=== PATIENT | male | born 1955 | race Caucasian/White ===

== ENCOUNTER 2023-07-10 09:41 | Emergency (ER) | payer OTHER, MEDICARE, SELFPAY ==
[2023-07-10 09:51] VITALS: BP 177/88; PULSE 63; RESP 16; TEMP 36.7; O2SAT 98; BMI 22.6
[2023-07-10 10:48] LABS: Basophils % 0.8 %; Eosinophils # 0.1 10^3/uL (0.0-0.8); Eosinophils % 1.7 %; Hematocrit 45.1 % (37-53); Lymphocytes # 1.3 10^3/uL (0.8-4.8); Lymphocytes % 24.6 %; Mean Corpuscular HGB Conc 33.9 g/dL (30-55); Mean Corpuscular Hemoglobin 31.6 pg (27-33); Mean Corpuscular Volume 93.2 fl (82-101); Mean Platelet Volume 11.4 fL (7.4-10.4); Monocytes # 0.4 10^3/uL (0.2-0.9); Monocytes % 6.8 %; Neutrophils # 3.51 10^3/uL (1.8-7.7); Neutrophils % 65.9 %; Nucleated Red Blood Cells % 0 %; Platelet Count 141 10^3/cmm (157-399); Red Blood Count 4.84 10^6/uL (3.85-5.65); Red Cell Distribution Width 12.8 % (12.1-15.1); White Blood Count 5.32 10^3/uL (3.29-11.43)
[2023-07-10 11:07] LABS: Alanine Aminotransferase 17 U/L (0-41); Albumin Level 4.3 g/dL (3.5-5.2); Alkaline Phosphatase 68 U/L (40-130); Anion Gap 13.6 (5-19); Aspartate Amino Transferase 16 U/L (0-40); Blood Urea Nitrogen 12 mg/dL (8-23); Calcium 9.1 mg/dL (8.5-10.5); Carbon Dioxide 28 mmol/L (22-29); Chloride 101 mmol/L (98-107); Globulin 2.6 g/dL (1.3-4.6); Glomerular Filtration Rate 84.4 mL/min (90-130); Glucose 89 mg/dL (65-115); Osmolality Calculated 285 mOsm/kg (285-295); Potassium 4.6 mmol/L (3.5-5.1); Sodium 138 mmol/L (136-145); Total Bilirubin 0.5 mg/dL (0.15-1.2); Total Protein 6.9 g/dL (6.6-8.7)
[2023-07-10 11:18] VITALS: BP 190/95; PULSE 61; RESP 18; O2SAT 99
[2023-07-10 11:22] LABS: Glucose Point of Care 87 mg/dL (70-110)
--- NOTE | 2023-07-10 11:36 | XRR_ITS ---
PROCEDURE INFORMATION: Exam: XR Chest Exam date and time: 07/10/2023 11:46 AM Age: 67 years old Clinical indication: Other: Syncope, heart murmur TECHNIQUE: Imaging protocol: Radiologic exam of the chest. Views: 1 view. Total images: 4 COMPARISON: No relevant prior studies available. FINDINGS: Lungs: Unremarkable. No consolidation. Pleural spaces: Unremarkable. No pleural effusion. No pneumothorax. Heart/Mediastinum: Unremarkable. No cardiomegaly. Bones/joints: Unremarkable. XR/XR chest 1V portable [id number] IMPRESSION: No acute findings.
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
[2023-07-10 12:03] LABS: Magnesium 2.2 mg/dL (1.7-2.3); Thyroid Stimulating Hormone 2.04 uIU/mL (0.27-4.20)
--- NOTE | 2023-07-10 12:20 | ECG_ITS ---
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 Measurements Intervals [place] Rate: 55 P: 81 [place]: 155 QRS: 64 QRSD: 86 T: 64 QT: 377 QTc: 363 Interpretive Statements SINUS BRADYCARDIA LEFT VENTRICULAR HYPERTROPHY AND ST-T CHANGE [VOLTAGE CRITERIA PLUS ST/T ABNORMALITY] POSSIBLE SEPTAL MYOCARDIAL INFARCTION , AGE INDETERMINATE No previous ECG available for comparison Electronically Signed On 07-10-2023 14:49:52 FINAL EXPENSE AGENT by Rafael Das M.D. [id number]
--- NOTE | 2023-07-10 12:33 | ECG_ITS ---
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 Measurements Intervals [place] Rate: 54 P: 80 CT: 153 QRS: 66 QRSD: 86 T: 70 QT: 381 QTc: 364 Interpretive Statements SINUS BRADYCARDIA LEFT VENTRICULAR HYPERTROPHY AND ST-T CHANGE [VOLTAGE CRITERIA PLUS ST/T ABNORMALITY] Compared to ECG 07/10/2023 12:20:45 Myocardial infarct finding no longer present ST (T wave) deviation still present Electronically Signed On 07-10-2023 14:49:33 DIRECT CARE COUNSELOR by Rafael Das M.D. [id number]
[2023-07-10 12:54] LABS: Troponin(5th) Baseline 15 ng/L (0-15)
--- NOTE | 2023-07-10 13:00 | ECG_ITS ---
[facility] Test Date: 2023-07-10 Pat Name: Tai Rosario Department: Room: Gender: Male Sde: : 1955 Requested By: Ronald Aguirre Order Number: [id number] Bhargav MD: Rafael Das M.D. Measurements Intervals [place] Rate: 55 P: 81 [place]: 159 QRS: 67 QRSD: 90 T: 74 QT: 389 QTc: 375 Interpretive Statements SINUS BRADYCARDIA LEFT VENTRICULAR HYPERTROPHY AND ST-T CHANGE [VOLTAGE CRITERIA PLUS ST/T ABNORMALITY] Compared to ECG 07/10/2023 12:30:27 No significant changes Electronically Signed On 07-10-2023 14:49:59 SILK SCREENER by Rafael Das M.D. [id number]
[2023-07-10 13:13] VITALS: BP 157/78; PULSE 62; RESP 18; O2SAT 100
== END 2023-07-10 14:49 | disposition home or self-care (01) ==
PROVIDERS: Emergency Medicine; Emergency Provider Emergency Medicine; PCP Family Medicine
DX: R55 Syncope and collapse (principal); R94.31 Abnormal electrocardiogram [ECG] [EKG]
CPT/HCPCS: 36415; 36416; 71045; 80053; 82962; 83735; 84443; 84484; 85025; 93005; 99285

== ENCOUNTER 2025-03-26 01:57 | Emergency (ER) | payer OTHER, SELFPAY ==
--- OUTSIDE RECORDS SUMMARY | 2025-03-25 07:19 | XMS_ITS | Encounter Summary ---
Author Organization [employer] [facility] Address [address] [place] [address] Care Team Providers Care Branch Account Manager Name Role Phone Ivan Hernandez MD Primary Care Provider Reason for Referral * Echocardiography (Routine) - Closed Specialty Diagnoses / Procedures Referred By Contac t Referred To Contact Radiology Diagnoses S/P aortic valve replacement Chronic diastolic heart failure due to valvular disease (CMS/HCC) Procedures ECHO COMPLETE - CONTRAST AND STRAIN IF INDICATED ECHO COMPLETE - CONTRAST AND STRAIN IF INDICATED MT ECHO TTHRC R-T 2D W/WOM-MODE COMPL SPEC&COLR D MT MYOCRD STRAIN IMG SPECKLE TRCK ASSMT MYOCRD [facility] MT TTE W OR WO FOL WCON,DOPPLER Angelika Fishman NP [facility] Echo [address] [place] [address] Phone: tel: fax: Referral ID Status Reason Start Date Expiration Date V isits Requested Visits Authorized [id number] Closed SGF CTS to Schedule 08/28/2024 09/28/2025 1 1 Reason for Visit * Echocardiography (Routine) - Closed Specialty Diagnoses / Procedures Referred By Contac t Referred To Contact Radiology Diagnoses S/P aortic valve replacement Chronic diastolic heart failure due to valvular disease (CMS/HCC) Procedures ECHO COMPLETE - CONTRAST AND STRAIN IF INDICATED ECHO COMPLETE - CONTRAST AND STRAIN IF INDICATED MT ECHO TTHRC R-T 2D W/WOM-MODE COMPL SPEC&COLR D MT MYOCRD STRAIN IMG SPECKLE TRCK ASSMT MYOCRD MECH MT TTE W OR WO FOL MIGUEL DURBIN Kyli Ann, NP [facility] Echo [address] [place] [address] Phone: tel: fax: Referral ID Status Reason Start Date Expiration Date V isits Requested Visits Authorized [id number] Closed SGF CTS to Schedule 08/28/2024 09/28/2025 1 1 Encounter Details Date Type Department Care Team (Latest Contact Info) Description 03/25/2025 7:19 AM CDT - 03/25/2025 11:59 PM CDT Hospital Encounter [facility] Echo [address] [place] [address] Angelika Fishman NP NO ADDRESS ON FILE Arrived Discharge Disposition: Home or Self Care Social History Tobacco Use Types Packs/Day Years Used Date Smoking Tobacco: Never Smokeless Tobacco: Never Alcohol Use Standard Drinks/Week Comments No 0 (1 standard drink = 0.6 oz pur e alcohol) Feeling Safe Answer Date Recorded Are you in a relationship wi th someone who hurts you emotionally and/or physically? 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 90 Tablet 3 10/23/2024 apixaban (ELIQUIS) 5 mg tablet Take 1 Tablet (5 mg) by mouth 2 times daily. 180 Tablet 3 10/22/2024 metoprolol tartrate (LOPRESSOR) 25 mg tablet TAKE 1 TABLET(25 MG) BY MOUTH TWICE DAILY 180 Tablet 3 10/01/2024 calcium carbonate (calcium as carbonate) 1,250 mg/5 mL (500 mg elemental/5 mL) Suspension TAKE 20 ML BY MOUTH TWICE DAILY WITH MEALS ferrous sulfate 325 mg (65 mg iron) tablet Take 1 Tablet by mouth 2 times daily. 04/24/2024 ibuprofen (MOTRIN) 200 mg tablet Take 1 tablet every 6 hours by oral route as directed. magnesium oxide (MAG-OX) 400 mg (241.3 mg magnesium) tablet Take 1 Tablet by mouth 2 times daily. 05/28/2024 triamcinolone acetonide (KENALOG) 0.1 % Cream two times daily as needed 06/09/2022 potassium chloride (K-TAB) 20 mEq Extended Release tablet Take 1 Tablet (20 mEq) by mouth 2 times daily with meals. 180 Tablet 09/30/2023 traMADoL (ULTRAM) 50 mg tabletIndication s:Aortic root enlargement,S/P aortic valve replacement Take 1 Tablet (50 mg) by mouth every 6 hours as needed for Pain. 20 Tablet 08/23/2023 aspirin (MARKIE CHEWABLE) 81 mg Tablet, Chewable Take 1 Tablet (81 mg) by mouth daily with breakfast. 08/10/2023 acetaminophen (TYLENOL) 500 mg tablet Take 2 Tablets (1,000 mg) by mouth every 6 hours as needed for Pain. 08/10/2023 furosemide (LASIX) 40 mg tablet Take 1 Tablet (40 mg) by mouth two times daily, 7 hours apart. 60 Tablet 08/10/2023 acyclovir (ZOVIRAX) 400 mg tablet Take 400 mg by mouth see administration instructions. 01/13/2019 documented as of this encounter Plan of Treatment Upcoming Encounters Date Type Department Care Team (Late st Contact Info) Description 04/02/2025 2:00 PM CDT Office Visit [facility] [address] [facility] [address] [place] [phone] Anju Ross NP [address] [facility] [address] [place] [phone] documented as of this encounter Procedures Procedure Name Priority Date/Time Associated Diagnosis Comments ECHO COMPLETE Routine 03/25/2025 9:00 AM CDT S/P aortic valve replacement Chronic diastolic heart failure due to valvular disease (CMS/HCC) documented in this encounter Results * ECHO COMPLETE - CONTRAST AND STRAIN IF INDICATED (03/25/2025 9:00 AM CDT) EJECTION FRACTION 55 INTERFACE SYSTEM 03/25/2025 8:09 AM CDT Narrative INTERFACE SYSTEM - 03/25/2025 11:42 AM CDT [facility] Cardiovascular Services Echocardiography Laboratory [address] [place] [id number] Transthoracic Echocardiography Patient: Tai Rosario Study ID: ECHO COMPLETE - Gender: M : 1955 Age: 69 Room: [facility] Study Date: 03/25/2025 Pt Status: Outpatient Study Time: 08:09:31 AM CSN #: [id number] Ordering:Angelika Fishman Manager Line: VICENTE Indications and History: S/P AVR. Labs, prior tests, procedures, and surgery: Aortic valve replacement with a bioprosthetic valve. Summary and Conclusion: - Left ventricle: The cavity size is normal. Wall thickness is increased in a pattern of mild LVH. Global systolic function is normal. For Epic reporting: the left ventricular ejection fraction is 55%. No diagnostic regional wall motion abnormality identified. Mild diastolic dysfunction (grade I, impaired relaxation pattern), suggestive of normal LV filling pressures. The longitudinal strain is -19.2% (Normal range is -18 to -25). - Right ventricle: The cavity size is normal. Systolic function is low normal. Systolic pressure is within the normal range. - Aortic valve: Bioprosthesis was present and functioning normally. There is no significant regurgitation. The mean systolic gradient is 5mm Hg. - Mitral valve: There is mild regurgitation. - Tricuspid valve: There is mild regurgitation. - Pulmonic valve: There is mild regurgitation. Procedure information: Comparison is made to the study of 12/05/2023. Study status: Routine. Procedure: A transthoracic echocardiogram was performed. Image quality was adequate. Scanning was performed from the parasternal, apical, subcostal, and suprasternal notch acoustic windows. Study components: M-mode, 2D, complete spectral Doppler, and color Doppler. Height: 166.4cm. Height: 65.5in. Weight: 68.5kg. Weight: 151lb. BMI: 24.7kg/m^2. BSA: 1.79m^2. Blood pressure: 146/82 Study date: 03/25/2025. Study time: 08:09 AM. Location: Echo laboratory. Cardiac Anatomy: LEFT VENTRICLE: The cavity size is normal. Wall thickness is increased in a pattern of mild LVH. Global systolic function is normal. For Epic reporting: the left ventricular ejection fraction is 55%. No diagnostic regional wall motion abnormality identified. The longitudinal strain is -19.2% (Normal range is -18 to -25). Mild diastolic dysfunction (grade I, impaired relaxation pattern), suggestive of normal LV filling pressures. RIGHT VENTRICLE: The cavity size is normal. Systolic function is low normal. Systolic pressure is within the normal range. LEFT ATRIUM: The atrium is normal in size. RIGHT ATRIUM: The atrium is normal in size. ATRIAL SEPTUM: No obvious PFO or ASD identified by 2D imaging and color Doppler. AORTIC VALVE: The valve is trileaflet. The leaflets are normal thickness. Bioprosthesis was present and functioning normally. Mobility is not restricted. There is no stenosis. There is no significant regurgitation. MITRAL VALVE: The leaflets are thickened. Mobility is not restricted. No evidence for prolapse. There is no evidence for stenosis. There is mild regurgitation. TRICUSPID VALVE: Structurally normal valve. Mobility is unrestricted. There is no evidence for stenosis. There is mild regurgitation. PULMONIC VALVE: Not well visualized. The valve appears to be grossly normal. There is no evidence for stenosis. There is mild regurgitation. PERICARDIUM: There is no pericardial effusion. AORTA: Aortic root: The root is not dilated. Ascending aorta: The vessel is mildly ectatic and 35.0mm diameter. Aortic arch: The vessel is not dilated. INTRACARDIAC MASS THROMBUS: No apparent intracavitary masses or thrombi detected. Measurements Left ventricle Value Right ventricle Value GLS, 2D -19.2 % JUAN CARLOS, LAX 2.2 cm JUAN CARLOS, LAX 4.4 cm JUAN CARLOS 2.2 cm ESD, LAX 3.0 cm JUAN CARLOS/bsa, LAX 2.5 cm/m^2 Left atrium Value ESD/bsa, LAX 1.7 cm/m^2 AP dim, ES 3.8 cm FS, LAX 31 % AP dim index, ES 2.1 cm/m^2 ESD major ax, A4C 5.6 cm SI dim, A4C 4.3 cm ESD/bsa major ax, A4C 3.1 cm/m^2 Area ES, A4C 15 cm^2 JUAN CARLOS minor ax, A4C 5.6 cm Vol, S 40 ml JUAN CARLOS/bsa minor ax, A4C 3.1 cm/m^2 Vol/bsa, S 22 ml/m^2 JUAN CARLOS major ax, A2C 6.5 cm Vol, ES, 1-p A4C 39 ml ESD major ax, A2C 6.1 cm Vol/bsa, ES, 1-p A4C 22 ml/m^2 JUAN CARLOS/bsa major ax, A2C 3.6 cm/m^2 Vol, ES, 1-p A2C 34 ml ESD/bsa major ax, A2C 3.4 cm/m^2 Vol/bsa, ES, 1-p A2C 19 ml/m^2 IVS, ED 0.9 cm Vol, ES, A/L 42 ml ESD 3.0 cm Vol/bsa, ES, A/L 24 ml/m^2 ESD/bsa 1.7 cm/m^2 PW, ED 1.1 cm Right atrium Value IVS/PW, ED 0.84 Area, ES 13 cm^2 EDV, 1-p A2C 70 ml Area, ES, A4C 13 cm^2 ESV, 1-p A2C 36 ml EF, 1-p A2C 51 % Aortic valve Value EDV/bsa, 1-p A2C 39 ml/m^2 Peak v, S 161.37 cm/sec ESV/bsa, 1-p A2C 20 ml/m^2 VTI, S 34.3 cm EDV, 1-p A4C 61 ml Mean grad, S 5 mm Hg ESV, 1-p A4C 24 ml Peak grad, S 10 mm Hg EF, 1-p A4C 61 % LVOT/AV, VTI ratio 0.72 SV, 1-p A4C 37 ml ALISON, VTI 2.15 cm^2 EDV/bsa, 1-p A4C 34 ml/m^2 ALISON/bsa, VTI 1.2 cm^2/m^2 ESV/bsa, 1-p A4C 13 ml/m^2 LVOT/AV, Vpeak ratio 0.67 SV/bsa, 1-p A4C 21 ml/m^2 ALISON, Vmax 2 cm^2 EDV, 2-p 67 ml ALISON/bsa, Vmax 1.12 cm^2/m^2 ESV, 2-p 30 ml EF, 2-p 55 % Mitral valve Value SV, 2-p 35 ml Peak E 76.13 cm/sec EDV/bsa, 2-p 37 ml/m^2 Peak A 91.77 cm/sec ESV/bsa, 2-p 17 ml/m^2 Decel time 220 ms SV/bsa, 2-p 19.3 ml/m^2 PHT 64 ms Peak grad, D 2 mm Hg LVOT Value Peak E/A ratio 0.83 Diam, S 2.0 cm MVA, PHT 3.44 cm^2 Area 3.0 cm^2 MVA/bsa, PHT 1.92 cm^2/m^2 Peak hitesh, S 107.74 cm/sec Vena contracta width 2.2 cm VTI, S 24.7 cm Peak grad, S 5 mm Hg Tricuspid valve Value SV 74 ml TR peak v 242.8 cm/sec Qs 4.1 L/min Peak RV-RA grad, S 24 mm Hg Qs/bsa 2.3 L/(min-m^2) SV/bsa 41 ml/m^2 Aortic root Value Root diam 3.5 cm Root diam/bsa 2.0 cm/m^2 Legend: (L) and (H) yusra values outside specified reference range. [facility] Echo Labs are accredited with the [employer] Accreditation Commission - Echocardiography. Prepared and Electronically Authenticated Morgan Stark Confirmed 03/25/2025 11:42 Procedure Note Morgan Stark MD - 03/25/2025 [facility] Cardiovascular Services Echocardiography Laboratory [address] [place] [id number] Transthoracic Echocardiography Patient: Tai Rosario Study ID: ECHO COMPLETE- Gender: M : 1955 Age: 69 Room: [facility] Study Date: 03/25/2025 Pt Status: Outpatient Study Time: 08:09:31 AM CSN #: [id number] Ordering:Angelika Fishman Manager Line: VICENTE Indications and History: S/P AVR. Labs, prior tests, procedures, and surgery: Aortic valve replacement with a bioprosthetic valve. Summary and Conclusion: - Left ventricle: The cavity size is normal. Wall thickness is increasedin a pattern of mild LVH. Global systolic function is normal. For Epicreporting: the left ventricular ejection fraction is 55%. No diagnostic regionalwall motion abnormality identified. Mild diastolic dysfunction (grade I,impaired relaxation pattern), suggestive of normal LV filling pressures. The longitudinal strain is -19.2% (Normal range is -18 to -25). - Right ventricle: The cavity size is normal. Systolic function is lownormal. Systolic pressure is within the normal range. - Aortic valve: Bioprosthesis was present and functioning normally. Thereis no significant regurgitation. The mean systolic gradient is 5mm Hg. - Mitral valve: There is mild regurgitation. - Tricuspid valve: There is mild regurgitation. - Pulmonic valve: There is mild regurgitation. Procedure information: Comparison is made to the study of 12/05/2023.Study status: Routine. Procedure: A transthoracic echocardiogram wasperformed. Image quality was adequate. Scanning was performed from the parasternal, apical, subcostal, and suprasternal notch acoustic windows.Study components: M-mode, 2D, complete spectral Doppler, and color Doppler. Height: 166.4cm. Height: 65.5in. Weight: 68.5kg. Weight: 151lb.BMI: 24.7kg/m^2. BSA: 1.79m^2. Blood pressure: 146/82 Studydate: 03/25/2025. Study time: 08:09 AM. Location: Echo laboratory. Cardiac Anatomy: LEFT VENTRICLE: The cavity size is normal. Wall thickness is increased krystne pattern of mild LVH. Global systolic function is normal. For Epicreporting: the left ventricular ejection fraction is 55%. No diagnostic regionalwall motion abnormality identified. The longitudinal strain is -19.2% (Normalrange is -18 to -25). Mild diastolic dysfunction (grade I, impaired relaxation pattern), suggestive of normal LV filling pressures. RIGHT VENTRICLE: The cavity size is normal. Systolic function is lownormal. Systolic pressure is within the normal range. LEFT ATRIUM: The atrium is normal in size. RIGHT ATRIUM: The atrium is normal in size. ATRIAL SEPTUM: No obvious PFO or ASD identified by 2D imaging and color Doppler. AORTIC VALVE: The valve is trileaflet. The leaflets are normalthickness. Bioprosthesis was present and functioning normally. Mobility is not restricted. There is no stenosis. There is no significantregurgitation. MITRAL VALVE: The leaflets are thickened. Mobility is not restricted.No evidence for prolapse. There is no evidence for stenosis. There ismild regurgitation. TRICUSPID VALVE: Structurally normal valve. Mobility isunrestricted. There is no evidence for stenosis. There is mild regurgitation. PULMONIC VALVE: Not well visualized. The valve appears to be grosslynormal. There is no evidence for stenosis. There is mild regurgitation. PERICARDIUM: There is no pericardial effusion. AORTA: Aortic root: The root is not dilated. Ascending aorta: The vessel is mildly ectatic and 35.0mm diameter. Aortic arch: The vessel is not dilated. INTRACARDIAC MASS THROMBUS: No apparent intracavitary masses or thrombi detected. Measurements Left ventricle Value Right ventricle Value GLS, 2D -19.2 % JUAN CARLOS, LAX 2.2cm JUAN CARLOS, LAX 4.4 cm JUAN CARLOS 2.2cm ESD, LAX 3.0 cm JUAN CARLOS/bsa, LAX 2.5 cm/m^2 Left atrium Value ESD/bsa, LAX 1.7 cm/m^2 AP dim, ES 3.8cm FS, LAX 31 % AP dim index, ES 2.1cm/m^2 ESD major ax, A4C 5.6 cm SI dim, A4C 4.3cm ESD/bsa major ax, A4C 3.1 cm/m^2 Area ES, A4C 15cm^2 JUAN CARLOS minor ax, A4C 5.6 cm Vol, S 40ml JUAN CARLOS/bsa minor ax, A4C 3.1 cm/m^2 Vol/bsa, S 22ml/m^2 JUAN CARLOS major ax, A2C 6.5 cm Vol, ES, 1-p A4C 39ml ESD major ax, A2C 6.1 cm Vol/bsa, ES, 1-p A4C 22ml/m^2 JUAN CARLOS/bsa major ax, A2C 3.6 cm/m^2 Vol, ES, 1-p A2C 34ml ESD/bsa major ax, A2C 3.4 cm/m^2 Vol/bsa, ES, 1-p A2C 19ml/m^2 IVS, ED 0.9 cm Vol, ES, A/L 42ml ESD 3.0 cm Vol/bsa, ES, A/L 24ml/m^2 ESD/bsa 1.7 cm/m^2 PW, ED 1.1 cm Right atrium Value IVS/PW, ED 0.84 Area, ES 13cm^2 EDV, 1-p A2C 70 ml Area, ES, A4C 13cm^2 ESV, 1-p A2C 36 ml EF, 1-p A2C 51 % Aortic valve Value EDV/bsa, 1-p A2C 39 ml/m^2 Peak v, S 161.37cm/sec ESV/bsa, 1-p A2C 20 ml/m^2 VTI, S 34.3cm EDV, 1-p A4C 61 ml Mean grad, S 5mm Hg ESV, 1-p A4C 24 ml Peak grad, S 10mm Hg EF, 1-p A4C 61 % LVOT/AV, VTI ratio 0.72 SV, 1-p A4C 37 ml ALISON, VTI 2.15cm^2 EDV/bsa, 1-p A4C 34 ml/m^2 ALISON/bsa, VTI 1.2cm^2/m^2 ESV/bsa, 1-p A4C 13 ml/m^2 LVOT/AV, Vpeak ratio 0.67 SV/bsa, 1-p A4C 21 ml/m^2 ALISON, Vmax 2cm^2 EDV, 2-p 67 ml ALISON/bsa, Vmax 1.12cm^2/m^2 ESV, 2-p 30 ml EF, 2-p 55 % Mitral valve Value SV, 2-p 35 ml Peak E 76.13cm/sec EDV/bsa, 2-p 37 ml/m^2 Peak A 91.77cm/sec ESV/bsa, 2-p 17 ml/m^2 Decel time 220ms SV/bsa, 2-p 19.3 ml/m^2 PHT 64ms Peak grad, D 2mm Hg LVOT Value Peak E/A ratio 0.83 Diam, S 2.0 cm MVA, PHT 3.44cm^2 Area 3.0 cm^2 MVA/bsa, PHT 1.92cm^2/m^2 Peak hitesh, S 107.74 cm/sec Vena contracta width 2.2cm VTI, S 24.7 cm Peak grad, S 5 mm Hg Tricuspid valve Value SV 74 ml TR peak v 242.8cm/sec Qs 4.1 L/min Peak RV-RA grad, S 24mm Hg Qs/bsa 2.3 L/(min-m^2) SV/bsa 41 ml/m^2 Aortic root Value Root diam 3.5cm Root diam/bsa 2.0cm/m^2 Legend: (L) and (H) yusra values outside specified reference range. [facility] Labs are accredited with the[employer] Accreditation Commission - Echocardiography. Prepared and Electronically Authenticated Morgan Stark Confirmed 03/25/2025 11:42 us Angelika Fishman NP US ORDERABLES Final Result INTERFACE SYSTEM Refer to clinic/hospital department documented in this encounter Visit Diagnoses Diagnosis S/P aortic valve replacement Heart valve replaced by other means Chronic diastolic heart failure due to valvular disease (CMS/HCC) documented in this encounter Care Teams Branch Account Manager Relationship Specialty Start Date End Date Ivan Hernandez MD [address] [place] [phone] PCP - General Internal Medicine 02/09/15 documented as of this encounter
[2025-03-26 02:02] VITALS: BP 217/113; PULSE 80; RESP 18; O2SAT 98; BMI 22.6
--- OUTSIDE RECORDS SUMMARY | 2025-03-26 02:06 | XMS_ITS | Encounter Summary ---
Author Organization [facility] Address [address] [place] [address] Care Team Providers Care Behaviorist Name Role Phone Ivan Hernandez MD Primary Care Provider Encounter Details Date Type Department Care Team (Latest Contact Info) Description 10/10/2003 Outpatient Historical [facility] Medicine [place] [address] [phone] Kimi Gore, FORESTRY CONTRACTOR [address] [place] [phone] Crushing injury finger (Primary Dx) Social History Tobacco Use Types Packs/Day Years Used Date Smoking Tobacco: Never Assessed Sex and Gender Information Value Date Recorded Sex Assigned at Not on file 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
--- OUTSIDE RECORDS SUMMARY | 2025-03-26 02:06 | XMS_ITS | Clinical Summary ---
Author Organization [facility] Address [address] Martinez: Epic Prelude ADT ANTONIO SUNG [address] Care Team Providers Care Aviation Mechanic Name Role Phone Ivan Hernandez MD Primary Care Provider Allergies Active Allergy Reactions Criticality Noted Date Comments Amlodipine Rash Low 07/26/2023 Medications acyclovir (ZOVIRAX) 400 mg tablet Take 400 mg by mouth see administration instructions. 019 Active aspirin (MARKIE CHEWABLE) 81 mg Tablet, Chewable Take 1 Tablet (81 mg) by mouth daily with breakfast. Active acetaminophen (TYLENOL) 500 mg tablet Take 2 Tablets (1,000 mg) by mouth every 6 hours as needed for Pain. 024 Active furosemide (LASIX) 40 mg tablet Take 1 Tablet (40 mg) by mouth two times daily, 7 hours apart. 60 Tablet 024 Active traMADoL (ULTRAM) 50 mg tabletIndicati ons:Aortic root enlargement,S/ P aortic valve replacement Take 1 Tablet (50 mg) by mouth every 6 hours as needed for Pain. 20 Tablet 024 Active potassium chloride (K-TAB) 20 mEq Extended Release tablet Take 1 Tablet (20 mEq) by mouth 2 times daily with meals. 180 Tablet 024 Active calcium carbonate (calcium as carbonate) 1,250 mg/5 mL (500 mg elemental/5 mL) Suspension TAKE 20 ML BY MOUTH TWICE DAILY WITH MEALS Active ferrous sulfate 325 mg (65 mg iron) tablet Take 1 Tablet by mouth 2 times daily. 10/08/2 024 Active ibuprofen (MOTRIN) 200 mg tablet Take 1 tablet every 6 hours by oral route as directed. Active magnesium oxide (MAG-OX) 400 mg (241.3 mg magnesium) tablet Take 1 Tablet by mouth 2 times daily. Active triamcinolone acetonide (KENALOG) 0.1 % Cream two times daily as needed Active metoprolol tartrate (LOPRESSOR) 25 mg tablet TAKE 1 TABLET(25 MG) BY MOUTH TWICE DAILY 180 Tablet 3 025 Active apixaban (ELIQUIS) 5 mg tablet Take 1 Tablet (5 mg) by mouth 2 times daily. 180 Tablet 3 Active atorvastatin (LIPITOR) 80 mg tablet Take 1 Tablet (80 mg) by mouth daily at bedtime. 90 Tablet 3 Active cephALEXin (KEFLEX) 500 mg capsule Take 1 Capsule (500 mg) by mouth 4 times daily for 7 days. 28 Capsule 025 2024 Discontinued cephALEXin (KEFLEX) 500 mg capsule Take 1 Capsule (500 mg) by mouth 4 times daily for 7 days. 28 Capsule 025 2024 Active Problems Problem Noted Date Diagnosed Date Aortic root enlargement 08/07/2023 S/P aortic valve replacement 08/05/2023 Acute blood loss anemia 08/05/2023 Chronic diastolic heart failure due to valvular disease 08/02/2023 Acute pulmonary embolism of subsegmental right lower lobe pulmonary arteries without acute cor pulmonale 07/29/2023 Dyslipidemia 07/29/2023 Severe aortic stenosis 07/26/2023 Sinus bradycardia by electrocardiogram Syncope 07/25/2023 Near syncope 07/24/2023 Chest pain 07/24/2023 Murmur, cardiac 07/24/2023 Aortic stenosis 07/24/2023 Right groin mass 01/30/2019 Left inguinal hernia 01/30/2019 Fracture of multiple ribs of right side 01/16/20 Closed fracture of sixth cervical vertebra 01/13 Closed fracture of seventh cervical vertebra Accidentally struck by falling tree 01/13/2019 Osteoarthritis 07/16/2010 Resolved Problems Problem Noted Date Diagnosed Date Resolved Date Acute postoperative respiratory insufficiency 08/06/19 24 08/08/2023 Hypokalemia 07/27/2023 07/27/2023 Elevated troponin 07/24/2023 07/27/2023 Accelerated hypertension 07/24/202306/2024 Encounters Date Type Department Care Team Description 03/25/2025 7:19 AM CDT - 03/25/2025 11:59 PM CDT Hospital Encounter [facility] Echo [address] [place] [address] Angelika Fishman NP Arrived Discharge Disposition: Home or Self Care 03/13/2025 External Device Data STL ABSTRACTION Provider, Abstract 03/06/2025 External Device Data STL ABSTRACTION Provider, Abstract 03/05/2025 External Device Data STL ABSTRACTION Provider, Abstract 03/01/2025 8:17 PM CDT - 03/01/2025 11:14 PM CDT Emergency [facility] Emergency Department [address] [place] [address] Kolby Wilson DO Hematoma of scalp, initial encounter (Primary Dx); Closed head injury, initial encounter Discharge Disposition: Home or Self Care 03/01/2025 Travel 02/26/2025 External Device Data STL ABSTRACTION Provider, Abstract 01/30/2025 External Device Data STL ABSTRACTION Provider, Abstract 01/30/2025 External Device Data STL ABSTRACTION Provider, Abstract 01/02/2025 External Device Data STL ABSTRACTION Provider, Abstract from Last 3 Months Immunizations Immunization Administration Dates Next Due (ADACEL/BOOSTRIX)(10 YR UP) TDAP VACCINE, 0.5ML, IM 02/09/2015 (TDVAX)(7 YRS UP) TETANUS AN D DIPHTHERIA TOXOIDS, ADSORBED (2 LF OF TETANUS TOXOID AND 2 LF OF DIPHTHERIA TOXOID), 0.5ML (PF), IM 10/10/2003 Family History Medical History Relation Name Comments Pacemaker Father Relation Name Status Comments Father Social History Tobacco Use Types Packs/Day Years [...] on file 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 Gender Identity Not on file Sexual Orientation Not on file Last Filed Vital Signs Vital Sign Reading Time Taken Comments Blood Pressure 160/83 03/01/2025 10:30 PM CDT Pulse 92 03/01/2025 10:30 PM CDT Temperature 36.9 C (98.5 F) 03/01/2025 8:20 PM CDT Respiratory Rate 17 03/01/2025 10:30 PM CDT Oxygen Saturation 98% 03/01/2025 10:30 PM CDT Inhaled Oxygen Concentration - - Weight 68.5 kg (151 lb) 08/28/2024 7: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 Height 166.4 cm (5' 5.5 ) 08/28/2024 7: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 Body Mass Index 24.75 08/28/2024 7: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 Plan of Treatment Upcoming Encounters Date Type Department Care Team (Late st Contact Info) Description 04/02/2025 2:00 PM CDT Office Visit [facility] [address] [facility] [address] [place] [phone] Anju Ross, SRAVAN [address] [facility] [address] [place] [phone] Health Maintenance Due Date Last Done Comments PNEUMOCOCCAL VACCINE 50+ YEA RS (1 of 2 - PCV) 09/17/1975 Traditional Medicare (ACO) A nnual Wellness Visit 09/17/1975 COLORECTAL SCREENING 2001 Colorectal Cancer Screening 2001 FIT-DNA Q 3 years 2001 FIT/FOBT Q 1 year 2001 Flex Sig/CT Colonography Q 5 years 2001 ZOSTER VACCINE (1 of 2) 2006 Preventative Visit- Commercial 07/18/2024 INFLUENZA VACCINE (#1) 2025 COVID-19 Vaccine (3 - 2024- season) 2025, 02/27/2021 DTAP/TDAP/TD VACCINES (3 - T d or Tdap) 08/21/2026 08/21/2016, 02/09/2015, 10/10/2003 RSV VACCINE (60+ or ) (1 - 1-dose 75+ series) 09/17/2031 Medical Devices Implanted Type Area Archivist [employer] Device Identifier Shelf Expiration Date Model / Serial / Lot Patch Pericardial 5x10 C0510 - [id number] Implanted:Qty: 1 on 08/05/2023 by Hand, Brodie Larios MD at [facility] Graft N/A: Heart [employer] [id number] 2025 [id number] / / [id number] Hemostatic Surgiflo 8ml W/ Thrombin 2993 - [id number] Implanted:Qty: 1 on 08/05/2023 by Hand, Brodie Larios MD at [facility] Hemostatic N/A: Chest [employer] [id number] 09/14/2024 2994 / / [id number] Hemostatic Surgicel 1x2in 1960 - [id number] Implanted:Qty: 1 on 08/05/2023 by Hand, Brodie Larios MD at [facility] Hemostatic N/A: Heart [employer] [id number] 09/14/20251960 / / [id number] Hemostatic Surgicel 1x2in 1960 - [id number] Implanted:Qty: 1 on 08/05/2023 by Hand, Brodie Larios MD at [facility] Hemostatic N/A: Heart [employer] 09/14/20251960 / / [id number] Hemostatic Surgicel 1x2in 1960 - [id number] Implanted:Qty: 1 on 08/05/2023 by Hand, Brodie Larios MD at [facility] Hemostatic N/A: Heart [employer] [id number] 09/14/20251 / / [id number] Vlv Aortic Inspiris 25mm [id number] - [id number] Implanted:Qty: 1 on 08/05/2023 by Hand, Brodie Larios MD at [facility] Valve N/A: Heart [employer] [id number] 01/09/2027 [id number] / [id number] / [id number] Procedures Procedure Name Priority Date/Time Associated Diagnosis Comments ECHO COMPLETE Routine 03/25/2025 9:00 AM CDT S/P aortic valve replacement Chronic diastolic heart failure due to valvular disease ([facility]) LACERATION REPAIR Routine 03/01/2025 10: [address] CERVICAL SPINE WO CONTRAST Stat 03/01/2025 9:[address] HEAD WO CONTRAST Stat 03/01/2025 9 :01 PM CDT from Last 3 Months Results * ECHO COMPLETE - CONTRAST AND STRAIN IF INDICATED (03/25/2025 9:00 AM CDT) EJECTION FRACTION 55 INTERFACE SYSTEM 03/25/2025 8:09 AM CDT Narrative INTERFACE SYSTEM - 03/25/2025 11:42 AM CDT [facility] Cardiovascular Services Echocardiography Laboratory [address] [place] [id number] Transthoracic Echocardiography Patient: Tai Rosario Study ID: ECHO COMPLETE - Gender: M : 1955 Age: 69 Room: [facility] Study Date: 03/25/2025 Pt Status: Outpatient Study Time: 08:09:31 AM [facility] #: [id number] Ordering:Angelika Fishman Wildlife Science Professor: VICENTE Indications and History: S/P AVR. Labs, [...] (H) yusra values outside specified reference range. [facility] Echo Labs are accredited with the Intersocietal Accreditation Commission - Echocardiography. Prepared and Electronically Authenticated Morgan Stark Confirmed 03/25/2025 11:42 Procedure Note Morgan Stark MD - 03/25/[address] [facility] Cardiovascular Services Echocardiography Laboratory [address] [place] [id number] Transthoracic Echocardiography Patient: Tai Rosario Study ID: ECHO COMPLETE- Gender: Alysha : 1955 Age: 69 Room: [facility] Study Date: 03/25/2025 Pt Status: Outpatient Study Time: 08:09:31 AM CSN #: [id number] Ordering:Angelika Fishman Wildlife Science Professor: VICENTE Indications and History: S/P AVR. Labs, [...] size is normal. Wall thickness is increased krysten pattern of mild LVH. Global systolic function [...] (H) yusra values outside specified reference range. [facility] Labs are accredited with the[facility] Accreditation Commission - Echocardiography. Prepared and Electronically Authenticated Morgan Stark Confirmed 03/25/2025 11:42 us Angelika Fishman NP US ORDERABLES Final Result INTERFACE SYSTEM Refer to clinic/hospital department * Laceration Repair (03/01/2025 10:12 PM CDT) Narrative Kolby Wilson DO - 03/01/2025 10:12 PM CDT Kolby Wilson DO 03/01/2025 10:14 PM Laceration Repair Date/Time: 03/01/2025 10:12 PM Performed by: Kolby Wilson DO Authorized by: Kolby Wilson DO Consent: Consent obtained: Verbal Consent given by: Patient Risks discussed: Pain, infection, need for additional repair, poor cosmetic result and poor wound healing Alternatives discussed: No treatment [place] protocol: Patient identity confirmed: Verbally with patient Anesthesia: Anesthesia method: None Laceration details: Location: Scalp Scalp location: Occipital Length (cm): 9 Pre-procedure details: Preparation: Patient was prepped and draped in usual sterile fashion and imaging obtained to evaluate for foreign bodies Exploration: Limited defect created (wound extended): no Hemostasis achieved with: Direct pressure Contaminated: yes Treatment: Area cleansed with: Saline Amount of cleaning: Extensive Irrigation solution: Sterile saline Irrigation volume: 100 Irrigation method: Pressure wash and syringe Visualized foreign bodies/material removed: yes Debridement: None Undermining: None Scar revision: no Skin repair: Repair method: [place] Number of [place]: 7 Approximation: Approximation: Loose Repair type: Repair type: Intermediate Post-procedure details: Dressing: Sterile dressing Procedure completion: Tolerated well, no immediate complications us [place] DO PROCEDURE/MINOR SURGICAL ORDERA BLES Final Result * CT CERVICAL SPINE WO CONTRAST (03/01/2025 9:01 PM CDT) Anatomical Region Laterality Modality Spine Computed Tomogra phy 03/01/2025 8:51 PM CDT Impressions 03/01/2025 9:43 PM CDT IMPRESSION: No evidence of an acute fracture or traumatic malalignment. Narrative 03/01/2025 9:43 PM CDT EXAM: CT CERVICAL SPINE WO CONTRAST DATE/TIME OF EXAM: 03/01/2025 9:01 PM REASON FOR EXAM: Neck trauma (Age >= 65y) DIAGNOSIS: See Reason for Exam COMPARISON: None. TECHNIQUE: Axial CT images of the cervical spine were acquired without contrast. Supplemental 2D reformatted images were generated and reviewed as needed. FINDINGS: Alignment: Within normal limits. Vertebrae: No acute fracture. Vertebral body heights maintained. No aggressive bone lesions. Degenerative changes: Multiple spondylosis resulting in mild central canal stenosis at C4-C6. Soft tissues: No gross upper cervical canal hematoma. Evaluation of the spinal canal and spinal cord remains limited by noncontrast CT imaging. Procedure Note Iraida Moore MD - 03/01/2025 EXAM: CT CERVICAL SPINE WO CONTRAST DATE/TIME OF EXAM: 03/01/2025 9:01 PM REASON FOR EXAM: Neck trauma (Age >= 65y) DIAGNOSIS: See Reason for Exam COMPARISON: None. TECHNIQUE: Axial CT images of the cervical spine were acquired without contrast. Supplemental 2D reformatted images were generated and reviewed as needed. FINDINGS: Alignment: Within normal limits. Vertebrae: No acute fracture. Vertebral body heights maintained. No aggressive bone lesions. Degenerative changes: Multiple spondylosis resulting in mild central canal stenosis at C4-C6. Soft tissues: No gross upper cervical canal hematoma. Evaluation of the spinal canal and spinal cord remains limited by noncontrast CT imaging. IMPRESSION: No evidence of an acute fracture or traumatic malalignment. us Kolby Wilson DO CT ORDERABLES Final Result * CT HEAD WO CONTRAST (03/01/2025 9:01 PM CDT) Anatomical Region Laterality Modality Head Computed Tomogra phy 03/01/2025 8:48 PM CDT Impressions 03/01/2025 9:11 PM CDT IMPRESSION: Left parietal scalp hematoma. No acute intracranial abnormality. Narrative 03/01/2025 9:11 PM CDT EXAM: CT HEAD WO CONTRAST DATE/TIME OF EXAM: 03/01/2025 9:01 PM REASON FOR EXAM: Head trauma, minor (Age >= 65y) DIAGNOSIS: See Reason for Exam COMPARISON: None. TECHNIQUE: Axial noncontrast CT images were obtained through the brain. Sagittal and coronal re-formations were subsequently performed. FINDINGS: Brain: No evidence of intracranial hemorrhage or extra-axial fluid collection. No intracranial mass effect or midline shift identified. No significant white matter hypoattenuation. No findings to suggest an evolving acute large vascular territory infarct. Parenchymal volume is within normal limits for patient age; no significant atrophy. Bones/Skull base: Mild laceration and hematoma of the left vertex. No adjacent skull fracture. Sinuses: Visualized portions of the paranasal sinuses and mastoid air cells are clear. Additional comments: None. Procedure Note Iraida Moore MD - 03/01/2025 EXAM: CT HEAD WO CONTRAST DATE/TIME OF EXAM: 03/01/2025 9:01 PM REASON FOR EXAM: Head trauma, minor (Age >= 65y) DIAGNOSIS: See Reason for Exam COMPARISON: None. TECHNIQUE: Axial noncontrast CT images were obtained through the brain. Sagittal and coronal re-formations were subsequently performed. FINDINGS: Brain: No evidence of intracranial hemorrhage or extra-axial fluid collection. No intracranial mass effect or midline shift identified. No significant white matter hypoattenuation. No findings to suggest an evolving acute large vascular territory infarct. Parenchymal volume is within normal limits for patient age; no significant atrophy. Bones/Skull base: Mild laceration and hematoma of the left vertex. No adjacent skull fracture. Sinuses: Visualized portions of the paranasal sinuses and mastoid air cells are clear. Additional comments: None. IMPRESSION: Left parietal scalp hematoma. No acute intracranial abnormality. us Kolby Wilson DO CT ORDERABLES Final Result from Last 3 Months Insurance MEDICARE PART A HOSPITAL ONLY [facility] [id number] WORKERS COMP Advance Directives For more information, please contact: [phone] Documents on File Type Date Recorded Patient [place] Expl anation Advance Directive POA 03/01/2025 10:11 PM Advance Directive POA * Full Code (Latest Code Status on File) Date Activated Date Inactivated Comments 08/05/2023 4:48 PM 08/10/2023 4:35 PM * Full Code Date Activated Date Inactivated Comments 08/02/2023 5:15 PM 08/05/2023 4:48 PM * Full Code Date Activated Date Inactivated Comments 07/24/2023 8:25 PM 08/02/2023 5:15 PM Care Teams Aviation Mechanic Relationship Specialty Start Date End Date Ivan Hernandez MD [address] [place] [id number] PCP - General Internal Medicine 02/09/15
--- OUTSIDE RECORDS SUMMARY | 2025-03-26 02:06 | XMS_ITS | Encounter Summary ---
Author Organization [facility] Address [address] [place] [address] Care Team Providers Care Wheel Truing Machine Tender Name Role Phone Ivan Hernandez MD Primary Care Provider Encounter Details Date Type Department Care Team (Latest Contact Info) Description 02/22/2002 Outpatient Historical [facility] [address] [address] Bernie Dixon MD NO ADDRESS ON FILE DERMATOPHYTOSIS OF NAIL (Primary Dx) Social History Tobacco Use Types Packs/Day Years Used Date Smoking Tobacco: Never Assessed Sex and Gender Information Value Date Recorded Sex Assigned at Not on file 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
--- OUTSIDE RECORDS SUMMARY | 2025-03-26 02:06 | XMS_ITS | Encounter Summary ---
Author Organization [facility] Address [address] [place] [address] Care Team Providers Care Journeyman Painter Name Role Phone Ivan Hernandez MD Primary Care Provider Encounter Details Date Type Department Care Team (Latest Contact Info) Description 06/30/2004 Outpatient Historical [facility] [place] [address] [facility] [address] [place] [address] Oleg Pham MD [address] [address] DERMATITIS NOS (Primary Dx) Social History Tobacco Use Types Packs/Day Years Used Date Smoking Tobacco: Never Assessed Sex and Gender Information Value Date Recorded Sex Assigned at Not on file 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
--- OUTSIDE RECORDS SUMMARY | 2025-03-26 02:06 | XMS_ITS | Clinical Summary ---
Author Organization [facility] Address [address] [facility] [address] [place] [address] Phone Care Team Providers Care Hospice Liaison Name Role Phone Ivan Hernandez MD Primary Care Provider Allergies No known active allergies Medications acyclovir (ZOVIRAX) 400 mg tablet Take 400 mg by mouth see administration instructions. Active oxyCODONE (ROXICODONE) 10 mg tabletIndication s:Closed nondisplaced fracture of seventh cervical vertebra, unspecified fracture morphology, initial encounter ([facility]),Closed fracture of multiple ribs of right side, initial encounter Take 1 Tablet (10 mg) by mouth every 4 hours as needed for Pain, Moderate or Pain, Severe. Max Daily Amount: 60 mg 30 Tablet 01/17/20 19 Active Active Problems Problem Noted Date Diagnosed Date Left inguinal hernia 01/30/2019 Right groin mass 01/30/2019 Fracture of multiple ribs of right side 01/16/20 19 Accidentally struck by falling tree 01/13/2019 Closed fracture of sixth cervical vertebra 01/13 Closed fracture of seventh cervical vertebra Osteoarthritis 07/16/2010 Immunizations Immunization Administration Dates Next Due (ADACEL/BOOSTRIX)(10 YR UP) TDAP VACCINE, 0.5ML, IM 02/09/2015 (TDVAX)(7 YRS UP) TETANUS AN D DIPHTHERIA TOXOIDS, ADSORBED (2 LF OF TETANUS TOXOID AND 2 LF OF DIPHTHERIA TOXOID), 0.5ML (PF), IM 10/10/2003 Social History Tobacco Use Types Packs/Day Years Used Date Smoking Tobacco: Never Smokeless Tobacco: Never Alcohol Use Standard Drinks/Week Comments No 0 (1 standard drink = 0.6 oz pur e alcohol) Sex and Gender Information Value Date Recorded Sex Assigned at Not on file 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 Gender Identity Not on file Sexual Orientation Not on file Last Filed Vital Signs Vital Sign Reading Time Taken Comments Blood Pressure 163/88 05/08/2019 9:39 AM CDT Pulse 53 05/08/2019 9:39 AM CDT Temperature 36.1 C (96.9 F) 01/17/2019 7:45 AM CDT Respiratory Rate 18 01/17/2019 7:45 AM CDT Oxygen Saturation 98% 01/17/2019 7:45 AM CDT Inhaled Oxygen Concentration - - Weight 55.3 kg (122 lb) 05/08/2019 9:39 AM CDT Height 165.1 cm (5' 5 ) 05/08/2019 9:39 AM CDT Body Mass Index 20.3 05/08/2019 9:39 AM CDT Plan of Treatment Health Maintenance Due Date Last Done Comments COLORECTAL SCREENING 2001 Colorectal Cancer Screening 2001 FIT-DNA Q 3 years 2001 FIT/FOBT Q 1 year 2001 Flex Sig/CT Colonography Q 5 years 2001 PNEUMOCOCCAL VACCINE 50+ YEA RS (1 of 1 - PCV) 2006 ZOSTER VACCINE (1 of 2) 2006 DTAP/TDAP/TD VACCINES (2 - Td or Tdap) 02/09/2025, 10/10/2003 INFLUENZA VACCINE (#1) 2025 RSV VACCINE (60+ or ) (1 - 1-dose 75+ series) 09/17/2031 Insurance BLUE CROSS PATHWAY(X) EXCHANGE Advance Directives For more information, please contact: [phone] * Full Code (Latest Code Status on File) Date Activated Date Inactivated Comments 01/13/2019 12:22 AM 01/17/2019 4:30 PM Care Teams Hospice Liaison Relationship Specialty Start Date End Date Ivan Hernandez MD [address] [place] [address] PCP - General Internal Medicine 02/09/15
--- OUTSIDE RECORDS SUMMARY | 2025-03-26 02:06 | XMS_ITS | Encounter Summary ---
Author Organization [facility] Address [address] [place] [address] Care Team Providers Care Tobacco Educator Name Role Phone Ivan Hernandez MD Primary Care Provider Encounter Details Date Type Department Care Team (Latest Contact Info) Description 08/27/2003 Outpatient Historical [facility] [address] [phone] Oleg Pham MD [address] [phone] Skin sensation disturb (Primary Dx) Social History Tobacco Use Types Packs/Day Years Used Date Smoking Tobacco: Never Assessed Sex and Gender Information Value Date Recorded Sex Assigned at Not on file 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
--- OUTSIDE RECORDS SUMMARY | 2025-03-26 02:06 | XMS_ITS | Encounter Summary ---
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
--- OUTSIDE RECORDS SUMMARY | 2025-03-26 02:06 | XMS_ITS | Encounter Summary ---
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
--- NOTE | 2025-03-26 02:07 | ECG_ITS ---
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 Measurements Intervals Orange Rate: 71 P: 76 ND: 168 QRS: 28 QRSD: 90 T: 78 QT: 355 QTc: 386 Interpretive Statements SINUS RHYTHM POSSIBLE LEFT ATRIAL ENLARGEMENT [-0.1mV P-WAVE IN V1/V2] NONSPECIFIC T WAVE ABNORMALITY SEPTAL MYOCARDIAL INFARCTION , OF INDETERMINATE AGE [40+ ms Q WAVE IN V1/V2] Compared to ECG 07/10/2023 13:00:28 Sinus bradycardia no longer present Left ventricular hypertrophy no longer present Electronically Signed On 03-27-2025 20:57:45 CDT by Jose Alfredo Mcconnell M.D. [email or web address]
--- NOTE | 2025-03-26 02:08 | ED_ITS ---
HPI - General Adult 2 General: Chief complaint: Recheck/Abnormal Lab/Rx Stated complaint: High BP Time Seen by Provider: 03/26/25 01:58 Source: patient Mode of arrival: ambulatory Limitations: no limitations History of Present Illness: 69-year-old male has a history of hypert ension states he takes metoprolol for his hypertension states over the last few days his blood pressures been increasing. States tonight he had not checked it and it was in the 180s it is 217/113 here. He denies any chest pain denies any headache denies any vomiting. Associated symptoms: Deny chest pain, dyspnea, headache(s), nausea, rash or vomiting Related Data Home Medications ?Medication ?Instructions ?Recorded ?Confirmed ibuprofen 200 mg tablet (IBU-200) 200 mg PO Q6H PRN Pa in 07/20/19 07/10/23 acyclovir 800 mg tablet 400 mg PO DAILY 07/10/23 Allergies Allergy/AdvReac Type Severity Reaction Status Date / Time amlodipine Allergy ALGY-Rash Verified 03/26/25 02:12 Review of Systems 2 Const: Denies: fever(s), chills, body aches or change in appetite Eyes: Denies: blurry vision or eye discomfort ENMT: Denies: throat pain or dental pain Card: Denies: chest pain Resp: Denies: dyspnea GI: Denies: abdominal pain, nausea, vomiting or diarrhea Musc: Denies: neck pain or back pain Skin/Breast: Denies: rash Neuro: Denies: headache(s) PFSH ED 2 PFSH: Family History Father CAD (coronary artery disease) Cancer PROSTATE Mother CAD (coronary artery disease) Family/Other Diabetes Social History Smoking and tobacco/nicotine status: never used tobacco/nicotine Alcohol intake: current Alcohol intake frequency: 3 or more drinks per day Substance/Drug Use: unknown Marital status: Single Current gender identity: Male Physical Exam 2 Const: COMMON NORMALS: no acute distress, patient oriented x3 and healthy appearing HENMT: COMMON NORMALS: normocephalic and atraumatic HEAD & SCALP: n ormocephalic and atraumatic Eye: COMMON NORMALS: Equal, round and reactive pupils present and EOMs intact bilaterally PUPIL: Yes Equal, round and reactive pupils present Neck/C-Spine: COMMON NORMALS: full ROM and supple Chest: COMMONS NORMALS: normal inspection of the chest Resp: COMMON NORMALS: normal respiratory effort, No retractions, No use of accessory muscles and clear to auscultation bilaterally AUSCULTATION: clear to auscultation bilaterally Cardio: COMMON NORMALS: regular rate, regular rhythm and No murmurs present (Cardio) RATE: regular rate RHYTHM: regular rhythm Extremity: COMMON NORMALS: normal to inspection and full ROM Neuro: COMMON NORMALS: patient oriented x3, moves all extremities and no focal motor deficits Psych: COMMON NORMALS: mental status grossly normal, Normal thought process present and cooperative THOUGHT PROCESS: Normal thought process present Skin: COMMON NORMALS: no rashes or lesions noted and no wounds GENERAL SKIN EXAM: no rashes or lesions noted Course 2 Vital Signs: Vital signs: Vital Signs Temperature 98.0 F 03/26/25 02:12 Pulse Rate 80 03/26/25 02:02 Respiratory Rate 18 03/26/25 02:02 Blood Pressure 217/113 03/26/25 02:02 Pulse Oximetry 98 03/26/25 02:02 Oxygen Delivery Me thod Room Air 03/26/25 02:02 MDM - General Adult Medical Decision Making Patient presents with hypertension he does states that he forgets to take his night meds at times forms were importance take his blood pressure medicines as scheduled his blood pressures improved here symptoms improved blood works all normal he stable for discharge follow-up with PCP return if worsening. Medical Records I reviewed the patient's medical records. Lab Data I reviewed the patient's lab results. 03/26/25 02:20 03/26/25 02:20 Laboratory Results WBC 6.75 10^3/uL (3.29-11.43) 03/26/25 02:20 RBC 4.72 10^6/uL (3.85-5.65) 03/26/25 02:20 Hgb 14.80 g/dL (11.27-16.99) 03/26/25 02:20 Hct 42.2 % (37-53) 03/26/25 02:20 MCV 89.4 fl (82-101) 03/26/25 02:20 MCH 31.4 pg (27-33) 03/26/25 02:20 MCHC 35.1 g/dL (30-55) 03/26/25 02:20 RDW 12.8 % (12.1-15.1) 03/26/25 02:20 Plt Count 129 10^3/cmm (157-399) L 03/26/25 02:20 MPV 11.6 fL (7.4-10.4) H 03/26/25 02:20 Neut % (Auto) 71.2 % 03/26/25 02:20 Lymph % (Auto) 17.5 % 03/26/25 02:20 Winkler % (Auto) 7.1 % 03/26/25 02:20 Eos % (Auto) 3.0 % 03/26/25 02:20 Baso % (Auto) 0.9 % 03/26/25 02:20 Neut # (Auto) 4.81 10^3/uL (1.8-7.7) 03/26/25 02:20 Lymph # (Auto) 1.2 10^3/uL (0.8-4.8) 03/26/25 02:20 Winkler # (Auto) 0.5 10^3/uL (0.2-0.9) 03/26/25 02:20 Eos # (Auto) 0.2 10^3/uL (0.0-0.8) 03/26/25 02:20 Baso # (Auto) 0.1 10^3/uL (0.0-0.1) 03/26/25 02:20 Nucleated RBC % (auto) 0 % 03/26/25 02:20 Nucleated RBCs # 0.0 /100WBC 03/26/25 02:20 Sodium 139 mmol/L (136-145) 03/26/25 02:20 Potassium 4.8 mmol/L (3.5-5.1) 03/26/25 02:20 Chloride 101 mmol/L (98-107) 03/26/25 02:20 Carbon Dioxide 23 mmol/L (22-29) 03/26/25 02:20 Anion Gap 19.8 (5-19) H 03/26/25 02:20 BUN 10 mg/dL (8-23) 03/26/25 02:20 Creatinine 0.9 mg/dL (0.7-1.2) 03/26/25 02:20 GFR Calculation 83.9 mL/min (90-130) L 03/26/25 02:20 Glucose 96 mg/dL (65-115) 03/26/25 02:20 Calculated Osmolality 287 mOsm/kg (285-295) 03/26/25 02:20 Calcium 9.2 mg/dL (8.5-10.5) 03/26/25 02:20 Total Bilirubin 0.5 mg/dL (0.15-1.2) 03/26/25 02:20 AST 34 U/L (0-40) 03/26/25 02:20 ALT 36 U/L (0-41) 03/26/25 02:20 Alkaline Phosphatase 88 U/L (40-130) 03/26/25 02:20 Total Protein 7.0 g/dL (6.6-8.7) 03/26/25 02:20 Albumin 4.5 g/dL (3.5-5.2) 03/26/25 02:20 Globulin 2.5 g/dL (1.3-4.6) 03/26/25 02:20 No radiology studies performed this visit EKG Data EKG 1: I personally reviewed and interpreted this EKG as follows: EKG interpretation date: 03/26/25 EKG interpretation time: 02:14 Interpretation: nsr hr [address] elevation qrs 90 qtc 377 Discharge Plan Discharge Patient Disposition: Home Clinical Impression: Hypertension Condition: Stable Prescriptions: No Action ibuprofen [IBU-200] 200 mg tablet 200 mg PO Q6H PRN (Reason: Pain) acyclovir 800 mg tablet 400 mg PO DAILY Discharge Orders: Discharge ED (Routine); Ordered 03/26/25 Ordered By: Jignesh Armstrong Referrals: Luisito Winn MD [Primary Care Provider, Family Practice] - 4-7 days Discharge Diet: Advance as tolerated Discharge Activity: Resume usual activity Patient Instructions: Hypertension (ED) Print Language: Bulgarian Coding Level of Care Code ED Performance Test Architect for Julio César Avelar
[2025-03-26 02:12] VITALS: TEMP 36.7
[2025-03-26] MEDS: hyDRALAzine 20 mg/mL INJ 1 mL 10 MG IVP (02:25)
[2025-03-26 02:29] LABS: Hematocrit 42.2 % (37-53); Hemoglobin 14.80 g/dL (11.27-16.99); Mean Corpuscular HGB Conc 35.1 g/dL (30-55); Mean Corpuscular Hemoglobin 31.4 pg (27-33); Mean Corpuscular Volume 89.4 fl (82-101); Nucleated Red Blood Cells % 0 %; Platelet Count 129 10^3/cmm (157-399); Red Blood Count 4.72 10^6/uL (3.85-5.65); White Blood Count 6.75 10^3/uL (3.29-11.43)
[2025-03-26 02:45] VITALS: BP 152/83; PULSE 76; O2SAT 100
[2025-03-26 02:48] LABS: Alanine Aminotransferase 36 U/L (0-41); Albumin Level 4.5 g/dL (3.5-5.2); Alkaline Phosphatase 88 U/L (40-130); Blood Urea Nitrogen 10 mg/dL (8-23); Calcium 9.2 mg/dL (8.5-10.5); Carbon Dioxide 23 mmol/L (22-29); Chloride 101 mmol/L (98-107); Creatinine Clr Calc Pharmacy 70.7569; Globulin 2.5 g/dL (1.3-4.6); Glucose 96 mg/dL (65-115); Osmolality Calculated 287 mOsm/kg (285-295); Sodium 139 mmol/L (136-145); Total Protein 7.0 g/dL (6.6-8.7)
[2025-03-26 02:52] LABS: Anion Gap 19.8 (5-19); Aspartate Amino Transferase 34 U/L (0-40); Potassium 4.8 mmol/L (3.5-5.1); Slide Review Slide Review Perform
[2025-03-26 03:16] VITALS: BP 119/78; PULSE 75; O2SAT 99
== END 2025-03-26 03:15 | disposition home or self-care (01) ==
PROVIDERS: Emergency Provider Emergency Medicine; PCP Family Medicine
DX: I10 Essential (primary) hypertension (principal)
CPT/HCPCS: 80053; 85025; 93005; 96374; 99284; J0360